=== PATIENT | male | born 1955 | race Caucasian/White ===

== ENCOUNTER 2020-04-22 14:29 | Inpatient (IN) | payer MEDICAID ==
[~2020-04-22] VITALS: Ht 175.3 cm; Wt 85.5 kg
[2020-04-23 00:35] VITALS: BP 138/79
[2020-04-23 06:41] LABS: CHOL/HDL RATIO 4.7 (4.2-7.3)
[2020-04-23] MEDS ORDERED: MAGNESIUM HYDROXIDE SUSPENSION 30 ML UDCUP PO PRN (07:30)
[2020-04-23] MEDS ORDERED: ONDANSETRON HCL 4 MG TABLET PO PRN (07:30)
[2020-04-23] MEDS ORDERED: ACETAMINOPHEN 325 MG TABLET PO PRN (07:30)
[2020-04-23] MEDS ORDERED: ALBUTEROL SULFATE HFA 90 MCG/PUFF 8 GM INHALER IH PRN (07:30)
[2020-04-23] MEDS ORDERED: CloNIDine HCL 0.1 MG TABLET PO PRN (07:30)
[2020-04-23] MEDS ORDERED: GuaiFENesin/D-METHORPHAN [SUGAR-FREE] 200-20MG/10 ML SYRUP UDCUP PO PRN (07:30)
[2020-04-23] MEDS ORDERED: IBUPROFEN 400 MG TABLET PO PRN (07:30)
[2020-04-23] MEDS ORDERED: NICOTINE 14 MG/24 HOUR PATCH TD PRN (07:30)
[2020-04-23] MEDS ORDERED: LOPERAMIDE HCL 2 MG CAPSULE PO PRN (07:30)
[2020-04-23] MEDS ORDERED: DOCUSATE SODIUM 100 MG CAPSULE PO PRN (07:30)
[2020-04-23] MEDS ORDERED: PETROLATUM,WHITE 28 GM JELLY TP PRN (07:30)
[2020-04-23] MEDS ORDERED: MAG HYDROX/AL HYDROX/SIMETH ES 30 ML SUSPENSION UDCUP PO PRN (07:30)
[2020-04-23] MEDS: RisperiDONE 1 MG TABLET PO SCH ×2 (09:54→20:40)
[2020-04-23 16:00] VITALS: BP 120/91
[2020-04-24] MEDS ORDERED: INFLUENZA VIRUS VACCINE QVS 2020-21 (6MO+)/PF 60 MCG/0.5 ML SYRINGE IM ONE (07:00)
[2020-04-24 08:00] VITALS: BP 118/63
[2020-04-24] MEDS: RisperiDONE 1 MG TABLET PO SCH (08:49)
[2020-04-24 16:00] VITALS: BP 133/78
[2020-04-24] MEDS: RisperiDONE 2 MG TABLET PO SCH (20:52)
[2020-04-25 08:47] VITALS: BP 127/69
[2020-04-25] MEDS: RisperiDONE 2 MG TABLET PO SCH ×2 (09:01→20:36)
[2020-04-25 17:49] VITALS: BP 126/75
[2020-04-26] MEDS: RisperiDONE 2 MG TABLET PO SCH ×2 (08:05→20:38)
[2020-04-26 10:03] VITALS: BP 127/67
[2020-04-26 19:56] VITALS: BP 123/68
[2020-04-27] MEDS: RisperiDONE 2 MG TABLET PO SCH ×2 (08:06→21:03)
[2020-04-27 10:23] VITALS: BP 116/57
[2020-04-27 16:29] VITALS: BP 151/74
[2020-04-27] MEDS ORDERED: MAGNESIUM CITRATE 300 ML ORAL SOLUTION PO PRN (18:00)
[2020-04-28] MEDS: RisperiDONE 2 MG TABLET PO SCH ×2 (08:19→20:39)
[2020-04-28] MEDS ORDERED: RISP2TAB76 PO (11:49)
[2020-04-28 17:00] VITALS: BP 132/68
[2020-04-29 08:00] VITALS: BP 111/62
[2020-04-29] MEDS: RisperiDONE 2 MG TABLET PO SCH (09:51)
== END 2020-04-29 13:15 | disposition home or self-care (01) | DRG 750 ==
LOC: 3EI 04-23 00:30
DX: F20.0 Paranoid schizophrenia (principal); Z59.0 Homelessness; E11.9 Type 2 diabetes mellitus without complications; D70.9 Neutropenia, unspecified; D64.9 Anemia, unspecified; N17.9 Acute kidney failure, unspecified; E78.5 Hyperlipidemia, unspecified; M62.82 Rhabdomyolysis; R00.1 Bradycardia, unspecified; Z79.899 Other long term (current) drug therapy; Z20.822 Contact with and (suspected) exposure to COVID-19
CPT/HCPCS: 87081

== ENCOUNTER 2024-03-07 23:35 | Emergency (ER) | payer MEDICAID, OTHER ==
[~2024-03-07] VITALS: Ht 172.7 cm; Wt 81.8 kg
[~2024-03-07 23:35] MED LIST: RISP2TAB76 PO
[2024-03-07 23:42] VITALS: BP 158/70; PULSE 88; RESP 20; TEMP 97.9; O2SAT 100
== END 2024-03-08 03:54 | disposition home or self-care (01) ==
LOC: EMS 23:37
DX: K40.90 Unilateral inguinal hernia, without obstruction or gangrene, not specified as recurrent (principal); E11.9 Type 2 diabetes mellitus without complications; F20.9 Schizophrenia, unspecified; Z59.00 Homelessness unspecified
CPT/HCPCS: 99283; Z7502